=== PATIENT | female | born 1990 | race Caucasian/White ===

== ENCOUNTER 2019-03-01 13:32 | Emergency (ER) | payer SELFPAY ==
[~2019-03-01] VITALS: Ht 162.6 cm; Wt 65.9 kg
[~2019-03-01 13:32] MED LIST: AMOXICILLIN 8751 TAB; CLINDAMYCIN300 MG; IBUPROFEN800 MG PO; NORCO 325 MG-7.1 TAB PO; OXYCODONE5 MG PO; XANAX1 MG PO
[2019-03-01 14:31] LABS: EOS # 0.1 (0.04-0.40); EOS % 1.4 % (1.0-5.0); HEMATOCRIT 37.2 % (37.0-47.0); HEMOGLOBIN 12.8 g/dL (12.5-16.0); LYMPH# 1.1 (1.50-4.00); MEAN CELL VOLUME 79 fl (78-100); MEAN CORPUSCULAR HEMOGLOBIN 27 pg (27-31); MEAN CORPUSCULAR HGB CONC 34 g/dL (33-37); MEAN PLATELET VOLUME 9.1 fl (7.4-10.4); MONO # 0.6 (0.20-0.80); NEU # 6.3 (1.40-6.50); PLATELET COUNT 276 K/mm3 (130-400); RED BLOOD COUNT 4.71 M/mm3 (4.10-5.30); RED CELL DISTRIBUTION WIDTH 14.6 % (11.5-14.5); WHITE BLOOD COUNT 8.1 K/mm3 (4.8-10.8)
[2019-03-01] MEDS ORDERED: CLEOCIN HCL150 M1 PO (15:14)
[2019-03-01] MEDS ORDERED: ORABASE 20% MM (15:14)
[2019-03-01 15:36] LABS: ERYTHROCYTE SEDIMENTATION RATE 31 mm/hr (0-20)
[2019-03-01 15:57] VITALS: BP 127/64
== END 2019-03-01 15:35 | disposition home or self-care (01) ==
LOC: ED 13:32
PROVIDERS: Family Medicine
DX: R68.84 Jaw pain (principal); I83.009 Varicose veins of unspecified lower extremity with ulcer of unspecified site; L97.909 Non-pressure chronic ulcer of unspecified part of unspecified lower leg with unspecified severity

== ENCOUNTER 2019-06-09 16:49 | Emergency (ER) | payer SELFPAY ==
[~2019-06-09] VITALS: Ht 162.6 cm; Wt 68.2 kg
[~2019-06-09 16:49] MED LIST changes: +CLEOCIN HCL150 M1 PO; +ORABASE 20% MM
[2019-06-09] MEDS ORDERED: KLONOPIN 1MG1 MG PO (16:56)
[2019-06-09 17:22] LABS: EOS # 0.1 (0.04-0.40); EOS % 3.2 % (1.0-5.0); HEMATOCRIT 34.2 % (37.0-47.0); HEMOGLOBIN 11.2 g/dL (12.5-16.0); MEAN CELL VOLUME 81 fl (78-100); MEAN CORPUSCULAR HEMOGLOBIN 26 pg (27-31); MEAN CORPUSCULAR HGB CONC 33 g/dL (33-37); MEAN PLATELET VOLUME 8.4 fl (7.4-10.4); MONO # 0.4 (0.20-0.80); NEU # 2.8 (1.40-6.50); PLATELET COUNT 182 K/mm3 (130-400); RED BLOOD COUNT 4.24 M/mm3 (4.10-5.30); RED CELL DISTRIBUTION WIDTH 15.2 % (11.5-14.5); WHITE BLOOD COUNT 4.3 K/mm3 (4.8-10.8)
[2019-06-09 17:33] LABS: ALBUMIN 3.8 g/dL (3.5-5.0); POTASSIUM 4.1 mmol/L (3.5-5.1)
[2019-06-09 17:34] LABS: CALCIUM 8.3 mg/dL (8.3-10.5)
[2019-06-09 17:35] LABS: TOTAL PROTEIN 7.3 g/dL (6.4-8.3)
[2019-06-09 17:37] LABS: TOTAL BILIRUBIN 0.4 mg/dL (0.2-1.2)
[2019-06-09 17:45] LABS: D-DIMER 0.8 mg/L FEU (0.15-0.50)
[2019-06-09 18:42] LABS: URINE APPEARANCE HAZY; URINE BILIRUBIN NEGATIVE (NEGATIVE); URINE BLOOD NEGATIVE (NEGATIVE); URINE COLOR YELLOW; URINE GLUCOSE NEGATIVE (NEGATIVE); URINE KETONE NEGATIVE (NEGATIVE); URINE LEUKOCYTE ESTERASE NEGATIVE (NEGATIVE); URINE NITRATE NEGATIVE (NEGATIVE); URINE PROTEIN(semi-quant) TRACE mg/dL (NEGATIVE); URINE UROBILINOGEN NORMAL (NORMAL)
[2019-06-09] MEDS ORDERED: CLEOCIN HCL300 MG PO (20:11)
[2019-06-09 20:34] VITALS: BP 128/65
== END 2019-06-09 20:24 | disposition home or self-care (01) ==
LOC: ED 16:49
PROVIDERS: Family Medicine
DX: L03.116 Cellulitis of left lower limb (principal); L03.115 Cellulitis of right lower limb; R60.0 Localized edema; G43.909 Migraine, unspecified, not intractable, without status migrainosus
CPT/HCPCS: J0696; J1650; Q9967

== ENCOUNTER → 2019-06-10 | Outpatient (CLI) | payer SELFPAY ==
[2019-06-09 20:34] VITALS: BP 128/65
[~2019-06-10] MED LIST changes: +CLEOCIN HCL300 MG PO; +KLONOPIN 1MG1 MG PO
== END ==
LOC: RAD 13:18
DX: R60.0 Localized edema (principal); R79.1 Abnormal coagulation profile

== ENCOUNTER 2019-11-18 12:11 | Emergency (ER) | payer SELFPAY ==
[~2019-11-18] VITALS: Ht 162.6 cm; Wt 69.1 kg
[2019-11-18] MEDS ORDERED: PROAIR HFA0.09 MG/AC IH (12:24)
[2019-11-18 12:47] LABS: HEMATOCRIT 30.2 % (37.0-47.0); HEMOGLOBIN 9.7 g/dL (12.5-16.0); MEAN CELL VOLUME 79 fl (78-100); MEAN CORPUSCULAR HEMOGLOBIN 25 pg (27-31); MEAN CORPUSCULAR HGB CONC 32 g/dL (33-37); MEAN PLATELET VOLUME 8.6 fl (7.4-10.4); PLATELET COUNT 113 K/mm3 (130-400); RED BLOOD COUNT 3.84 M/mm3 (4.10-5.30); RED CELL DISTRIBUTION WIDTH 16.2 % (11.5-14.5); WHITE BLOOD COUNT 8.9 K/mm3 (4.8-10.8)
[2019-11-18 12:58] LABS: POTASSIUM 3.7 mmol/L (3.5-5.1)
[2019-11-18 12:59] LABS: BAND 2 % (0-10); CALCIUM 9.2 mg/dL (8.3-10.5); HYPOCHROMIA 1+; LYMPHOCYTE 5 % (20-51); MICROCYTOSIS 1+; MONOCYTE 3 % (3-10); NEUTROPHILS 90 % (42-75)
[2019-11-18 13:00] LABS: TOTAL PROTEIN 7.4 g/dL (6.4-8.3)
[2019-11-18 13:02] LABS: TOTAL BILIRUBIN 1.1 mg/dL (0.2-1.2)
[2019-11-18 14:24] LABS: URINE APPEARANCE CLOUDY; URINE BILIRUBIN NEGATIVE (NEGATIVE); URINE COLOR YELLOW; URINE GLUCOSE NEGATIVE (NEGATIVE); URINE KETONE NEGATIVE (NEGATIVE); URINE NITRATE POSITIVE (NEGATIVE); URINE PROTEIN(semi-quant) TRACE mg/dL (NEGATIVE); URINE UROBILINOGEN NORMAL (NORMAL)
[2019-11-18 14:25] LABS: URINE BLOOD TRACE (NEGATIVE); URINE LEUKOCYTE ESTERASE TRACE (NEGATIVE)
[2019-11-18] MEDS ORDERED: CEFDINIR300 MG PO (14:59)
[2019-11-18 15:27] VITALS: BP 115/77
== END 2019-11-18 15:30 | disposition home or self-care (01) ==
LOC: ED 12:11
PROVIDERS: Nurse Practitioner Primary Care
DX: N39.0 Urinary tract infection, site not specified (principal); R51 Headache; D50.9 Iron deficiency anemia, unspecified; F11.10 Opioid abuse, uncomplicated
CPT/HCPCS: J1885; J2550; J7030